=== PATIENT | female | born 1995 | race Caucasian/White ===

== ENCOUNTER 2019-12-16 09:11 | Inpatient (IN) ==
[2019-12-16] MEDS ORDERED: OXYTOCIN 30 UNITS/500 ML BAG IV PRN ×2 (09:40→10:09)
[2019-12-16] MEDS ORDERED: PENICILLIN G POTASSIUM 6 MU in DEXTROSE 5% 250 ML IV STA (09:40)
[2019-12-16] MEDS ORDERED: PENICILLIN G POTASSIUM 3 MU in DEXTROSE 5% 100 ML IV SCH (09:45)
[2019-12-16 10:03] LABS: Hematocrit (blood only) 37.2 % (37-47); Mean Corpuscular Hemoglobin 30.5 pg (25-34); Mean Corpuscular Volume 94.7 fL (80-100); Mean Platelet Volume 11.1 fL (7.4-10.4); Platelet Count 147 K/uL (130-400); RDW Coefficient of Variation 13.8 % (11.5-14.5); RDW Standard Deviation 47.9 fL (36.4-46.3); Red Blood Count 3.93 M/uL (4.2-5.4); White Blood Count 10.99 K/uL (4.8-10.8)
[2019-12-16 10:05] LABS: Mean Corpuscular Hgb Conc 32.3 g/dL (32-36)
[2019-12-16 10:20] LABS: Alanine Aminotransferase 39 U/L (12-78); Albumin Level 2.5 gm/dl (3.4-5.0); Aspartate Aminotransferase 65 U/L (15-37); BUN Creatinine Ratio 9.2 (10-20); Bilirubin Direct < 0.1 mg/dl (0-0.2); Blood Urea Nitrogen 6 mg/dl (7-18); Calcium 8.5 mg/dl (8.5-10.1); Carbon Dioxide 22 mmol/L (21-32); Chloride 108 mmol/L (98-107); Creatinine Clr Calc Pharmacy 153.8 ml/min; Est GFR (African American) 141.6; Est GFR (Non-African American) 122.2; Glucose 82 mg/dl (70-99); Potassium 3.6 mmol/L (3.5-5.1); Sodium 139 mmol/L (136-145)
--- NOTE | 2019-12-16 10:21 | History & Physical Report ---
Date of Service December 16, 2019 Assessment & Plan (1) Group B streptococcal bacteriuria: Will treat with pcn (2) Gestational [-induced] hypertension without significant proteinuria, third trimester: Given demonstration of elevated blood pressure over greater than 4 hours, she fulfils criteria of ghtn. Plan to admit to induce, favorable cervix. Plan pitocin, arom when indicated. Epidural upon demand. fetus category one and anticipate . Repeat labs. No s/s of severe disease at this point, but will monitor carefully. History of Present Illness Chief Complaint: blood pressure check Primary Care Provider: NO PCP Patient is a 24yowf with iup at 39 5/7 weeks who presents to labor and delivery for a blood pressure check. She was evaluated in the Ed yesterday for concern for DVt. She ruled out for this but had very elevated blood pressures in the Ed as high as 160s/110s. She was completely asymptomatic. She was monitored in labor and delivery and her pressures improved to more normal ranges. She had only an elevated AST in 60s. Given all of this, there was no diagnosis at the time and she was sent home for evaluation this am. She continues to be asymptomatic at this time. +fm. no ctx/lof/vb. Her pressures are still slightly elevated although not as bad as yesterday. Given elevated blood pressures over more than 4 hours, this makes her at best ghtn perhaps atypical pet and has an indication for delivery. She is agreeable. The has been otherwise uncomplicated. labs--O+/ab-/ri/rprnr/hepb-/hiv-/gc/ct-/ declined genetic testing/gtt x 2 neg/GBS positive. Last covid exactly 14 days ago and negative. Allergies Allergy/AdvReac Type Severity Reaction Status Date / Time levocetirizine [From Xyzal] Allergy Intermediate Hives Verified 12/16/19 10:17 Home Medications Home Medications Medication Instructions Recorded Confirmed Type prenat.vits,laly,psp-julg-pagjg 1 tab PO DAILY 05/07/19 12/15/19 History docusate sodium 100 mg PO BID PRN 12/15/19 12/15/19 History Patient History Medical History (Updated 12/16/19 @ 10:18 by Guerda Acevedo MD, FACOG) Encounter for anatomic survey Hx of ovarian cyst Surgical History (Updated 12/16/19 @ 10:16 by Vero Arellano RN) H/O breast surgery Hx of LASIK S/P wisdom tooth extraction Family History Mother Diabetes Dyslipidemia Hypertension Grandmother (Maternal) Breast cancer Hypertension Dyslipidemia Grandfather (Maternal) Heart disease Hypertension Dyslipidemia Aunt Twin Social History Smoking Status: Never smoker Hx Alcohol Use: No Hx Substance Use: No Preferred Language: Micronesian Communication Ability: Effective Roll Capper Required: No Beliefs That Will Affect Care: None marital status: marital status details: Stephon Lerma (25) [phone] Current Living Situation: Spouse Current Living Situation Comment: lives with spouse, 1 dog, 1 cat. 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 Review of Systems All systems reviewed & are unremarkable except as noted in HPI & below Physical Exam Constitutional: WD/WN, vitals as above Cardiovascular: Extremities: + edema (trace) Gastrointestinal (Abdomen): soft, nt, gravid Neurologic: nl dtrs, no clonus Psychiatric: A+Ox3, euthymic affect Genitourinary: cx--3/50/-2/soft/mid toco--none efm--140s with mod variability, accels to 160s, no decels Results & Data ([facility]) Vital Signs (Past 12 Hours) Vital Signs Pulse BP 12/16/19 09:46 122 H 137/92 12/16/19 09:31 111 H 139/94 12/16/19 09:19 104 H 145/89 H Coding Level of Care Code None Diagnoses Group B streptococcal bacteriuria R82.71 Gestational [-induced] hypertension without significant proteinuria, third trimester O13.3
[2019-12-16 10:23] LABS: Albumin Globulin Ratio 0.7 (0.9-2); Alkaline Phosphatase 157 U/L (45-117); Bilirubin,Total 0.3 mg/dl (0.2-1); Globulin 3.8 gm/dl (2.5-4.0); Total Protein 6.3 gm/dl (6.4-8.2)
[2019-12-16] MEDS: LACTATED RINGER'S 1,000 ML IV PRN ×3 (10:42→22:25)
[2019-12-16] MEDS: PENICILLIN G POTASSIUM 3 MU in DEXTROSE 5% 100 ML IV PRN ×3 (14:41→22:47)
[2019-12-16] MEDS ORDERED: ePHEDrine sulfate 50 MG/ML AMP ONE (15:41)
[2019-12-16] MEDS ORDERED: BUPIVACAINE 0.25% 30 ML VIAL ONE (15:41)
[2019-12-16] MEDS ORDERED: fentaNYL citrate 100 MCG/2 ML VIAL ONE (15:42)
[2019-12-16] MEDS ORDERED: fentaNYL 2MCG/ML ROPIV 1.25MG/ML 100 ML BAG EPI ONE (15:42)
[2019-12-16] MEDS ORDERED: fentaNYL 2MCG/ML ROPIV 1.25MG/ML 100 ML BAG EPI PRN ×3 (15:43→18:25)
[2019-12-16] MEDS ORDERED: NALOXONE HCL 1 MG in SODIUM CHLORIDE 0.9% 1000ML 1,000 ML IV PRN (15:43)
[2019-12-16] MEDS ORDERED: ONDANSETRON INJ 2 MG/ML 2 ML VIAL IV PRN (15:43)
[2019-12-16] MEDS ORDERED: ePHEDrine sulfate 50 MG/ML AMP IV PRN (15:43)
[2019-12-16] MEDS ORDERED: NALOXONE HCL 0.4 MG/1 ML VIAL/CARP IV PRN (15:43)
--- NOTE | 2019-12-16 15:46 | Anesthesiology Consultation ---
Date of Service December 16, 2019 Covid 19 negative today. Assessment & Plan Chart Review Chart Review: Patient NOT seen in Pre Admission Testing and Acceptable Risk for Labor Epidural Consults Requested none ASA ASA2 Proposed Anesthesia Anesthesia Type: Labor Epidural and CSE Risk / Benefits Reviewed With: PT / POA / Parent / Guardian, Accepts Plan and Informed Consent Obtained History Height/Weight Height: 5 ft 8 in Weight: 93.894 kg Allergies Allergy/AdvReac Type Severity Reaction Status Date / Time levocetirizine [From Xyzal] Allergy Intermediate Hives Verified 12/16/19 10:17 Medications Home Medications Medication Instructions Recorded Confirmed Last Taken prenat.vits,laly,ncn-idba-nbjzr 1 tab PO DAILY 05/07/19 12/16/19 12/15/19 20:00 docusate sodium 100 mg PO BID PRN 12/15/19 12/16/19 12/15/19 08:00 Active Medications Generic Name Dose Route Start Last Admin Trade Name Freq PRN Reason Stop Dose Admin Lactated Ringer's 1,000 mls @ 125 mls/hr 12/16/19 09:40 12/16/19 15:46 Lr IV 12/18/19 09:39 999 mls/hr .Q8H PRN Titration L&D Protocol Protocol Oxytocin 30 units in 500 mls @ 14 mls/hr 12/16/19 10:09 12/16/19 13:55 Pitocin IV 12/18/19 10:08 0.84 units/hr .Q24H PRN 14 mls/hr Labor Induction/Augmentation Titration Protocol 0.84 UNITS/HR Penicillin G Potassium 3 mu/ 106 mls @ 100 mls/hr 12/16/19 11:30 12/16/19 15: 46 Dextrose IV 12/26/19 09:44 Infused Q4H PRN Titration LABOR Protocol NPO Date Last Intake of Fluids: 12/16/19 Time Last Intake of Fluids: 14:30 Date Last Intake of Solids: 12/16/19 Time Last Intake of Solids: 08:30 Past Medical History Medical History Encounter for anatomic survey Hx of ovarian cyst Exercise / Class Metabolic Activity II 4-5 Yardwork/Stairs/Walk up hill Past Family History Family History Mother Diabetes Dyslipidemia Hypertension Grandmother (Maternal) Breast cancer Hypertension Dyslipidemia Grandfather (Maternal) Heart disease Hypertension Dyslipidemia Aunt Twin Past Surgical History Surgical History H/O breast surgery Hx of LASIK S/P wisdom tooth extraction Past Anesthesia History No Hx of Anesthesia Complications and No Family Hx of Anesthesia Complications History of PONV No Hx of PONV and No Hx of Motion Sickness Social History Smoking Status: Never smoker Hx Alcohol Use: No Hx Substance Use: No substance use type: does not use Review of Systems no chest pain or sob Physical Exam Vital Signs Last Vital Signs Temp 36.5 C 12/16/19 15:08 Pulse 84 12/16/19 15:40 Resp 20 12/16/19 15:30 BP 135/71 12/16/19 15:10 Pulse Ox 100 12/16/19 15:40 ENMT Mouth: no TMJ abnormality Thyromental Distance: > or= 3.5 Finger Breadths Mallampati Class: II Neck normal visual inspection Respiratory normal respiratory effort Auscultation: lungs clear to auscultation bilaterally Cardiovascular Rate/Rhythm: regular rate and regular rhythm Musculoskeletal Spine: normal cervical ROM Neurologic moves all extremities Psychiatric Orientation: alert and oriented x 3 Testing Laboratory Results 12/16/19 09:54 12/16/19 09:54
--- NOTE | 2019-12-16 16:51 | Labor Progress Brief Note ---
Date of Service December 16, 2019 Subjective s/p epiural Assessment & Plan (1) Gestational [-induced] hypertension without significant proteinuria, third trimester: Admission and Anticipated Discharge Date Admission Date: December 16, 2019 s/p arom. continue pitocin. fetus category one. anticipate . Physical Exam Constitutional: WD/WN, vitals as above Psychiatric: A+Ox3, euthymic affect Genitourinary: cx--4-5/80/-2 arom--small, clear toco--q2-3min, pit at 14 efm--130s wtih mod variability, accels to 160s, no decels Results & Data ([facility]) Vital Signs (Past 12 Hours) Vital Signs Temp Pulse Resp BP Pulse Ox 12/16/19 16:45 77 100 12/16/19 16:41 79 139/80 12/16/19 16:40 76 100 12/16/19 16:35 77 98 12/16/19 16:31 74 93 12/16/19 16:30 81 18 100 12/16/19 16:26 73 133/80 12/16/19 16:25 73 100 12/16/19 16:20 70 128/78 99 12/16/19 16:17 78 136/89 12/16/19 16:15 79 99 12/16/19 16:10 82 135/81 100 12/16/19 16:09 78 144/86 H 12/16/19 16:07 84 138/79 12/16/19 16:05 86 152/83 H 99 12/16/19 16:03 82 124/65 12/16/19 16:01 82 128/70 12/16/19 16:00 89 20 100 12/16/19 15:59 80 138/86 12/16/19 15:57 78 131/86 12/16/19 15:56 76 137/90 12/16/19 15:55 77 100 12/16/19 15:50 101 H 100 12/16/19 15:45 86 100 12/16/19 15:40 84 100 12/16/19 15:30 20 12/16/19 15:10 68 135/71 12/16/19 15:08 36.5 C 18 12/16/19 14:46 83 126/76 12/16/19 13:49 37.0 C 73 20 135/72 09/07/20 12:42 76 110/73 12/16/19 11:45 86 123/81 12/16/19 10:44 95 H 129/87 12/16/19 09:50 37.0 C 20 12/16/19 09:46 122 H 137/92 12/16/19 09:31 111 H 139/94 12/16/19 09:19 104 H 145/89 H Coding Level of Care Code None Diagnoses Gestational [-induced] hypertension without significant proteinuria, third trimester O13.3
[2019-12-16] MEDS ORDERED: Nursing to Pharmacy Communication SCH (17:15)
--- NOTE | 2019-12-16 19:28 | Labor Progress Brief Note ---
Date of Service December 16, 2019 Subjective comfortable Assessment & Plan (1) Gestational [-induced] hypertension without significant proteinuria, third trimester: Admission and Anticipated Discharge Date Admission Date: December 16, 2019 Making change. Continue pitocin. Fetus category one. Anticipate . Physical Exam Constitutional: WD/WN, vitals as above Psychiatric: A+Ox3, euthymic affect Genitourinary: cx--6-7/80/-2 toco--q 2-4min, pit at 16 efm--115 with mod variability, accels to 150s, no decels Results & Data ([facility]) Vital Signs (Past 12 Hours) Vital Signs Temp Pulse Resp BP Pulse Ox 12/16/19 19:20 84 100 12/16/19 19:15 74 100 12/16/19 19:10 87 100 12/16/19 19:06 75 135/79 12/16/19 19:05 80 99 12/16/19 19:00 74 20 100 12/16/19 18:55 69 100 12/16/19 18:51 88 140/88 12/16/19 18:50 81 100 12/16/19 18:45 36.8 C 81 99 12/16/19 18:40 75 99 12/16/19 18:36 76 130/84 12/16/19 18:35 76 97 12/16/19 18:30 77 20 98 12/16/19 18:25 74 99 12/16/19 18:21 77 128/81 12/16/19 18:20 75 99 12/16/19 18:15 75 98 12/16/19 18:10 74 99 12/16/19 18:06 68 126/77 12/16/19 18:05 74 99 12/16/19 18:00 71 20 100 12/16/19 17:55 75 99 12/16/19 17:51 96 H 129/81 12/16/19 17:50 86 99 12/16/19 17:45 72 100 12/16/19 17:40 84 98 12/16/19 17:37 76 126/79 12/16/19 17:35 75 100 12/16/19 17:30 83 20 99 12/16/19 17:25 71 100 12/16/19 17:23 82 131/86 12/16/19 17:21 90 130/85 12/16/19 17:20 91 H 100 12/16/19 17:15 83 100 12/16/19 17:10 69 98 12/16/19 17:07 98 H 133/103 H 12/16/19 17:05 80 100 12/16/19 17:00 73 20 100 12/16/19 16:55 74 100 12/16/19 16:50 75 100 12/16/19 16:45 77 100 12/16/19 16:41 79 139/80 12/16/19 16:40 76 100 12/16/19 16:35 77 98 12/16/19 16:31 74 93 12/16/19 16:30 81 18 100 12/16/19 16:26 73 133/80 12/16/19 16:25 73 100 12/16/19 16:20 70 128/78 99 12/16/19 16:17 78 136/89 12/16/19 16:15 79 99 12/16/19 16:10 82 135/81 100 12/16/19 16:09 78 144/86 H 12/16/19 16:07 84 138/79 12/16/19 16:05 86 152/83 H 99 12/16/19 16:03 82 124/65 12/16/19 16:01 82 128/70 12/16/19 16:00 89 20 100 12/16/19 15:59 80 138/86 12/16/19 15:57 78 131/86 12/16/19 15:56 76 137/90 12/16/19 15:55 77 100 12/16/19 15:50 101 H 100 12/16/19 15:45 86 100 12/16/19 15:40 84 100 12/16/19 15:30 20 12/16/19 15:10 68 135/71 12/16/19 15:08 36.5 C 18 12/16/19 14:46 83 126/76 12/16/19 13:49 37.0 C 73 20 135/72 12/16/19 12:42 76 110/73 12/16/19 11:45 86 123/81 12/16/19 10:44 95 H 129/87 12/16/19 09:50 37.0 C 20 12/16/19 09:46 122 H 137/92 12/16/19 09:31 111 H 139/94 12/16/19 09:19 104 H 145/89 H Coding Level of Care Code None Diagnoses Gestational [-induced] hypertension without significant proteinuria, third trimester O13.3
--- NOTE | 2019-12-16 21:29 | Obstetrical Progress Note ---
Date of Service December 16, 2019 Assessment & Plan (1) Gestational [-induced] hypertension without significant pr oteinuria, third trimester: Admission and Anticipated Discharge Date Admission Date: December 16, 2019 Will run pitocin to get mvus to >200. Fetus category one. Suspect ctx not strong enough. Subjective Getting a little more uncomfortable. Review of Systems Constitutional: as per Subjective / HPI Physical Exam Constitutional: WD/WN, vitals as above Psychiatric: A+Ox3, euthymic affect Genitourinary: cx--unchanged iupc placed tcocqq2-4min, pit at 18 efm--120s wtih mod variability, accels present, no decels Results & Data ([facility]) Vital Signs (Past 12 Hours) Vital Signs Temp Pulse Resp BP Pulse Ox 12/16/19 21:25 82 100 12/16/19 21:21 75 105/64 12/16/19 21:20 77 98 12/16/19 21:15 72 97 12/16/19 21:10 75 98 12/16/19 21:06 75 116/71 12/16/19 21:05 74 100 12/16/19 21:00 37.0 C 81 20 98 12/16/19 20:55 91 H 100 12/16/19 20:51 89 126/77 12/16/19 20:50 86 100 12/16/19 20:45 76 99 12/16/19 20:40 79 97 12/16/19 20:36 86 120/79 12/16/19 20:35 85 96 12/16/19 20:30 74 20 96 12/16/19 20:25 70 96 12/16/19 20:21 68 121/81 12/16/19 20:20 72 96 12/16/19 20:15 69 96 12/16/19 20:10 64 96 12/16/19 20:06 101 H 131/88 12/16/19 20:05 95 H 97 12/16/19 20:00 97 H 20 98 12/16/19 19:55 68 98 12/16/19 19:51 76 128/83 12/16/19 19:50 72 97 12/16/19 19:45 68 97 12/16/19 19:40 72 100 12/16/19 19:36 63 127/82 12/16/19 19:35 70 100 12/16/19 19:30 88 20 98 12/16/19 19:25 73 100 12/16/19 19:20 84 100 12/16/19 19:15 74 100 12/16/19 19:10 87 100 12/16/19 19:06 75 135/79 12/16/19 19:05 80 99 12/16/19 19:00 74 20 100 12/16/19 18:55 69 100 12/16/19 18:51 88 140/88 12/16/19 18:50 81 100 12/16/19 18:45 36.8 C 81 99 12/16/19 18:40 75 99 12/16/19 18:36 76 130/84 12/16/19 18:35 76 97 12/16/19 18:30 77 20 98 12/16/19 18:25 74 99 12/16/19 18:21 77 128/81 12/16/19 18:20 75 99 12/16/19 18:15 75 98 12/16/19 18:10 74 99 12/16/19 18:06 68 126/77 12/16/19 18:05 74 99 12/16/19 18:00 71 20 100 12/16/19 17:55 75 99 12/16/19 17:51 96 H 129/81 12/16/19 17:50 86 99 12/16/19 17:45 72 100 12/16/19 17:40 84 98 12/16/19 17:37 76 126/79 12/16/19 17:35 75 100 12/16/19 17:30 83 20 99 12/16/19 17:25 71 100 12/16/19 17:23 82 131/86 12/16/19 17:21 90 130/85 12/16/19 17:20 91 H 100 12/16/19 17:15 83 100 12/16/19 17:10 69 98 12/16/19 17:07 98 H 133/103 H 12/16/19 17:05 80 100 12/16/19 17:00 73 20 100 12/16/19 16:55 74 100 12/16/19 16:50 75 100 12/16/19 16:45 77 100 12/16/19 16:41 79 139/80 12/16/19 16:40 76 100 12/16/19 16:35 77 98 12/16/19 16:31 74 93 12/16/19 16:30 81 18 100 12/16/19 16:26 73 133/80 12/16/19 16:25 73 100 12/16/19 16:20 70 128/78 99 12/16/19 16:17 78 136/89 12/16/19 16:15 79 99 12/16/19 16:10 82 135/81 100 12/16/19 16:09 78 144/86 H 12/16/19 16:07 84 138/79 12/16/19 16:05 86 152/83 H 99 12/16/19 16:03 82 124/65 12/16/19 16:01 82 128/70 12/16/19 16:00 89 20 100 12/16/19 15:59 80 138/86 12/16/19 15:57 78 131/86 12/16/19 15:56 76 137/90 12/16/19 15:55 77 100 12/16/19 15:50 101 H 100 12/16/19 15:45 86 100 12/16/19 15:40 84 100 12/16/19 15:30 20 12/16/19 15:10 68 135/71 12/16/19 15:08 36.5 C 18 12/16/19 14:46 83 126/76 12/16/19 13:49 37.0 C 73 20 135/72 12/16/19 12:42 76 110/73 12/16/19 11:45 86 123/81 12/16/19 10:44 95 H 129/87 12/16/19 09:50 37.0 C 20 12/16/19 09:46 122 H 137/92 12/16/19 09:31 111 H 139/94 PG Care Time/CCT Total # of Minutes Spent Total Time Spent with Patient: Total time spent is greater than 50% in coordination of care (as documented) at patient's floor/unit and/or counseling patient: Coding Level of Care Code None Diagnoses Gestational [-induced] hypertension without significant proteinuria, third trimester O13.3
--- NOTE | 2019-12-17 00:13 | Obstetrical Progress Note ---
Date of Service December 17, 2019 Assessment & Plan (1) Gestational [-induced] hypertension without significant pr oteinuria, third trimester: Admission and Anticipated Discharge Date Admission Date: December 16, 2019 continue current management. Fetus overall reassuring category 2. anticipate . Subjective resting Review of Systems Review of Systems: All systems reviewed & are unremarkable except as noted in HPI & below Physical Exam Constitutional: WD/WN, vitals as above Psychiatric: A+Ox3, euthymic affect Genitourinary: cx--9/100/-2 per recent nursing check toco--q 2-3min, pit at 26 efm--120s with mod variability, rare variable with contractions, small accel [facility] & Data ([facility]) Vital Signs (Past 12 Hours) Vital Signs Temp Pulse Resp BP Pulse Ox 12/17/19 00:07 78 115/64 12/17/19 00:05 85 100 12/17/19 00:00 88 100 12/16/19 23:55 84 100 12/16/19 23:51 93 H 150/90 H 12/16/19 23:50 92 H 100 12/16/19 23:45 91 H 100 12/16/19 23:40 85 97 12/16/19 23:36 74 141/91 H 12/16/19 23:35 89 100 12/16/19 23:30 68 99 12/16/19 23:25 86 98 12/16/19 23:21 73 127/78 12/16/19 23:20 73 98 12/16/19 23:15 69 99 12/16/19 23:10 67 98 12/16/19 23:06 72 129/79 12/16/19 23:05 73 98 12/16/19 23:00 71 99 12/16/19 22:55 84 98 12/16/19 22:51 36.4 C L 82 18 129/80 12/16/19 22:50 80 99 12/16/19 22:45 84 99 12/16/19 22:40 73 99 12/16/19 22:36 78 121/76 12/16/19 22:35 77 98 12/16/19 22:30 36.8 C 71 20 98 12/16/19 22:25 70 96 12/16/19 22:22 71 125/73 12/16/19 22:20 68 97 12/16/19 22:15 69 96 12/16/19 22:14 70 94 12/16/19 22:10 69 96 12/16/19 22:06 72 114/72 12/16/19 22:05 67 96 12/16/19 22:00 71 20 96 12/16/19 21:55 91 H 97 12/16/19 21:51 100 H 113/78 12/16/19 21:50 100 H 98 12/16/19 21:45 77 98 12/16/19 21:40 77 99 12/16/19 21:36 80 118/78 12/16/19 21:35 68 98 12/16/19 21:30 81 20 99 12/16/19 21:25 82 100 12/16/19 21:21 75 105/64 12/16/19 21:20 77 98 12/16/19 21:15 72 97 12/16/19 21:10 75 98 12/16/19 21:06 75 116/71 12/16/19 21:05 74 100 12/16/19 21:00 37.0 C 81 20 98 12/16/19 20:55 91 H 100 12/16/19 20:51 89 126/77 12/16/19 20:50 86 100 12/16/19 20:45 76 99 12/16/19 20:40 79 97 12/16/19 20:36 86 120/79 12/16/19 20:35 85 96 12/16/19 20:30 74 20 96 12/16/19 20:25 70 96 12/16/19 20:21 68 121/81 12/16/19 20:20 72 96 12/16/19 20:15 69 96 12/16/19 20:10 64 96 12/16/19 20:06 101 H 131/88 12/16/19 20:05 95 H 97 12/16/19 20:00 97 H 20 98 12/16/19 19:55 68 98 12/16/19 19:51 76 128/83 12/16/19 19:50 72 97 12/16/19 19:45 68 97 12/16/19 19:40 72 100 12/16/19 19:36 63 127/82 12/16/19 19:35 70 100 12/16/19 19:30 88 20 98 12/16/19 19:25 73 100 12/16/19 19:20 84 100 12/16/19 19:15 74 100 12/16/19 19:10 87 100 12/16/19 19:06 75 135/79 12/16/19 19:05 80 99 12/16/19 19:00 74 20 100 12/16/19 18:55 69 100 12/16/19 18:51 88 140/88 12/16/19 18:50 81 100 12/16/19 18:45 36.8 C 81 99 12/16/19 18:40 75 99 12/16/19 18:36 76 130/84 12/16/19 18:35 76 97 12/16/19 18:30 77 20 98 12/16/19 18:25 74 99 12/16/19 18:21 77 128/81 12/16/19 18:20 75 99 12/16/19 18:15 75 98 12/16/19 18:10 74 99 12/16/19 18:06 68 126/77 12/16/19 18:05 74 99 12/16/19 18:00 71 20 100 12/16/19 17:55 75 99 12/16/19 17:51 96 H 129/81 12/16/19 17:50 86 99 12/16/19 17:45 72 100 12/16/19 17:40 84 98 12/16/19 17:37 76 126/79 12/16/19 17:35 75 100 12/16/19 17:30 83 20 99 12/16/19 17:25 71 100 12/16/19 17:23 82 131/86 12/16/19 17:21 90 130/85 12/16/19 17:20 91 H 100 12/16/19 17:15 83 100 12/16/19 17:10 69 98 12/16/19 17:07 98 H 133/103 H 12/16/19 17:05 80 100 12/16/19 17:00 73 20 100 12/16/19 16:55 74 100 12/16/19 16:50 75 100 12/16/19 16:45 77 100 12/16/19 16:41 79 139/80 12/16/19 16:40 76 100 12/16/19 16:35 77 98 12/16/19 16:31 74 93 09/07/20 16:30 81 18 100 12/16/19 16:26 73 133/80 12/16/19 16:25 73 100 12/16/19 16:20 70 128/78 99 12/16/19 16:17 78 136/89 12/16/19 16:15 79 99 12/16/19 16:10 82 135/81 100 12/16/19 16:09 78 144/86 H 12/16/19 16:07 84 138/79 12/16/19 16:05 86 152/83 H 99 12/16/19 16:03 82 124/65 12/16/19 16:01 82 128/70 12/16/19 16:00 89 20 100 12/16/19 15:59 80 138/86 12/16/19 15:57 78 131/86 12/16/19 15:56 76 137/90 12/16/19 15:55 77 100 12/16/19 15:50 101 H 100 12/16/19 15:45 86 100 12/16/19 15:40 84 100 12/16/19 15:30 20 12/16/19 15:10 68 135/71 12/16/19 15:08 36.5 C 18 12/16/19 14:46 83 126/76 12/16/19 13:49 37.0 C 73 20 135/72 12/16/19 12:42 76 110/73 PG Care Time/CCT Total # of Minutes Spent Total Time Spent with Patient: Total time spent is greater than 50% in coordination of care (as documented) at patient's floor/unit and/or counseling patient: Coding Level of Care Code None Diagnoses Gestational [-induced] hypertension without significant proteinuria, third trimester O13.3
[2019-12-17] MEDS ORDERED: miSOPROStoL 200 MCG TAB ONE (02:32)
[2019-12-17] MEDS ORDERED: CARBOPROST TROMETHAMINE 250 MCG/ML AMPUL ONE (02:33)
[2019-12-17] MEDS ORDERED: METHYLERGONOVINE MALEATE 0.2 MG/ML AMP ONE (02:45)
[2019-12-17] MEDS ORDERED: OXYCODONE/ACETAMINOPHEN 5mg/325mg TAB PO PRN (02:56)
[2019-12-17] MEDS ORDERED: METHYLERGONOVINE MALEATE 0.2 MG/ML AMP IM ONE (02:56)
[2019-12-17] MEDS ORDERED: BENZOCAINE 20% AER SPR 82.5 GM CAN EXT PRN (02:56)
[2019-12-17] MEDS ORDERED: SUPERCREAM 0.870% 15 GM JAR EXT PRN (02:56)
[2019-12-17] MEDS ORDERED: OXYTOCIN 30 UNITS/500 ML BAG IV PRN (02:56)
[2019-12-17] MEDS ORDERED: CARBOPROST TROMETHAMINE 250 MCG/ML AMPUL IM ONE (02:56)
[2019-12-17] MEDS ORDERED: HYDROCORTISONE ACETATE 25 MG SUPP PR PRN (02:56)
[2019-12-17] MEDS ORDERED: bisacodyL 10 MG SUPP PR PRN (02:56)
[2019-12-17] MEDS ORDERED: ACETAMINOPHEN 325 MG TAB PO PRN (02:56)
[2019-12-17] MEDS ORDERED: DIPHTHERIA/TETANUS/PERTUSSIS 0.5 ML SYR/VIAL IM ONE (02:56)
[2019-12-17] MEDS ORDERED: miSOPROStoL 200 MCG TAB PR ONE (02:56)
--- NOTE | 2019-12-17 02:57 | Delivery Summary ---
Vaginal Delivery Summary Date of Service December 17, 2019 Vaginal Delivery Summary Pre-operative Diagnosis: at 39 weeks [facility] Post-operative Diagnosis: same PPH secondary to uterine atony Procedure: pitocin induction epidural iupc first degree laceration with repair multiple medications administered to aid in treatment of uterine atony EBL: 900cc Anesthesia: epidural Procedure: The patient pushed for about 90 minutes to deliver a viable female in bong position. A loose nuchal cord x 1 was easily reduced and then the rest of the was then delivered without difficulty. The baby was vigorous. The nose and mouth were bulb suctioned and the was placed in the maternal abdomen for drying and attention. Cord was clamped and cut at one minute of life. Cord blood and segment obtained. Placenta delivered spontaneous, intact with a three vessel cord. I needed to reach into the vagina to grasp the placenta to aid in delivery. After the placenta delivered, a large amount of blood was expelled from the uterus--about 700cc. A PPH was encountered secondary to uterine atony which was treated with dilute pitocin, rectal cytotec, im hemabate, im methergine. The uterus was explored after delivery of the placenta and no retained pocs noted. Aggressive uterine massage was performed. Cervix/sulci/rectum were intact. A first degree perineal laceration was repaired in the normal standard fashion. The zenia was explored after the repair and a small amount of clot was removed. the uterus was firming down nicely. A second iv site was obtained and fluid bolus given. Pulse dropped to the 60s and blood pressure dropped to 60/30 immediately after delivery of the placenta and loss of blood. Pulse now in 90s with pressure recovered to 118/70. Apgars were 8/8. Will continue to monitor bleeding while in PP recovery.
[2019-12-17] MEDS ORDERED: OXYTOCIN 20 UNITS in LACTATED RINGER'S 1,000 ML IV SCH (03:00)
[2019-12-17] MEDS ORDERED: ONDANSETRON INJ 2 MG/ML 2 ML VIAL ONE (03:13)
[2019-12-17] MEDS ORDERED: ONDANSETRON INJ 2 MG/ML 2 ML VIAL IV ONE (03:13)
--- NOTE | 2019-12-17 07:12 | Anesthesia Procedure Note ---
Date of Service December 17, 2019 Anesthesia Post Epidural Note Vital Signs Vital Signs: Temp Pulse Resp BP Pulse Ox 36.8 C 82 18 116/63 94 12/17/19 02:50 12/17/19 06:57 12/17/19 06:26 12/17/19 06:57 12/17/19 03:20 Pain Intensity Bilateral Lower Abdomen: Pain Intensity: 1 Notes Mental Status: alert / awake / arousable and participated in evaluation Nausea / Vomiting: adequately controlled Pain: adequately controlled Airway Patency, RR, SpO2: stable & adequate BP & HR: stable & adequate Hydration State: stable & adequate Neuraxial Anesthesia: was administered and sensory block is resolving Anesthetic Complications: no major complications apparent and Pt Satisfied with anesthetic care Epidural: Removed without complications and With tip intact Notes: Epidural site clean, dry and intact. No signs of edema, erythema or bruising at insertion site. Pt instructed to request anesthesia if she has residual lower extremity numbness or if she develops lower extremity pain or weakness, back pain or headache.
[2019-12-17 08:05] LABS: Hematocrit (blood only) 30.2 % (37-47)
[2019-12-17] MEDS: PRENATAL VITAMIN 1 TAB PO SCH (09:50)
[2019-12-17] MEDS: IBUPROFEN 600 MG TAB PO PRN ×2 (09:50→21:12)
[2019-12-17] MEDS: DOCUSATE SODIUM 100 MG CAP PO SCH ×2 (09:50→21:09)
[2019-12-18 05:54] LABS: Hematocrit (blood only) 26.3 % (37-47); Hemoglobin 8.8 g/dL (12.0-16.0)
--- NOTE | 2019-12-18 07:07 | Obstetrical Progress Note ---
Date of Service <Edd Castro MD - Last Filed: 12/18/19 08:08> December 18, 2019 Assessment & Plan <Edd Castro MD - Last Filed: 12/18/19 08:08> (1) Vaginal delivery: - PNL: Rh pos, RI, GBS pos, COVID neg - Feels well today. Eating well, voiding well, ambulating well. - Pain well controlled with ibuprofen 600mg Q4H PRN - Routine care - OOB, ambulation, diet progression as tolerated - After discharge will have 6 week follow-up with Dr. Francis Subjective <Edd Castro MD - Last Filed: 12/18/19 08:08> Ambulation: ambulating normally Voiding: no voiding problems Passing Gas:: Yes Diet Tolerance:: regular diet Lochia:: Small Constitutional: no fever and no chills Respiratory: no cough and no dyspnea Cardiovascular: no chest pain, no palpitations and no edema Gastrointestinal: no nausea and no vomiting Genitourinary (female): no dysuria Physical Exam <Edd Castro MD - Last Filed: 12/18/19 08:08> Constitutional no acute distress Respiratory normal respiratory effort, lungs clear to auscultation Cardiovascular RRR, no murmur, no edema Gastrointestinal (Abdomen) Inspection/Auscultation: normal bowel sounds Percussion/Palpation: abdomen soft Musculoskeletal no calf tenderness Genitourinary uterine fundus firm, palpable 3cm below the umbilicus Results & Data ([facility]) <Edd Castro MD - Last Filed: 12/18/19 08:08> Vital Signs (Past 12 Hours) Vital Signs Temp Pulse Resp BP Pulse Ox 12/18/19 00:25 36.7 C 105 H 18 118/81 98 12/17/19 21:15 36.7 C 111 H 16 141/90 H 99 <April Francis MD, FACOG - Last Filed: 12/18/19 08:51> Co-Signing Physician Notes Resident Physician Supervision Note: I was present with [Gloria] during the history and exam. I discussed the case with the resident and agree with the findings and plan as documented in the note. Any exceptions or clarifications are listed here: [None] Documented By: April Francis MD, FACOG Resident Activity Tracking <Edd Castro MD - Last Filed: 12/18/19 08:08> Resident Involvement: Resident Care Provided Care Provided: OB Delivery
[2019-12-18] MEDS: PRENATAL VITAMIN 1 TAB PO SCH (08:40)
[2019-12-18] MEDS: DOCUSATE SODIUM 100 MG CAP PO SCH (08:40)
[2019-12-18] MEDS: IBUPROFEN 600 MG TAB PO PRN (08:40)
[2019-12-18] MEDS ORDERED: bisacodyL 5 MG TABEC PO SCH (20:00)
== END 2019-12-18 14:43 | disposition home or self-care (01) | DRG 768 ==
LOC: OPB 09:11 → 4S1 09:16 → 4S2 12-17 09:26

== ENCOUNTER 2021-11-17 07:58 | Inpatient (IN) ==
[2021-11-17] MEDS ORDERED: OXYTOCIN 30 UNITS/500 ML BAG IV PRN ×2 (08:11→21:41)
[2021-11-17] MEDS ORDERED: Patient's HEIGHT &/or WEIGHT Needed SCH (08:30)
[2021-11-17] MEDS: LACTATED RINGER'S 1,000 ML IV PRN ×3 (09:19→17:49)
[2021-11-17] MEDS: OXYTOCIN 30 UNITS/500 ML BAG IV PRN ×2 (09:28→21:45)
[2021-11-17 09:48] LABS: Hematocrit (blood only) 35.5 % (34.1-44.9); Hemoglobin 11.3 g/dl (12.0-16.0); Mean Corpuscular Hemoglobin 28.3 pg (25.0-34.0); Mean Corpuscular Hgb Conc 31.8 g/dL (32.0-36.0); Mean Platelet Volume 10.9 fL (9.4-12.3); Platelet Count 152 K/uL (130-400); RDW Coefficient of Variation 14.2 % (11.5-14.5); RDW Standard Deviation 45.6 fL (36.4-46.3); Red Blood Count 3.99 M/uL (3.93-5.22); White Blood Count 10.72 K/ul (4.8-10.8)
--- NOTE | 2021-11-17 11:00 | History & Physical Report ---
Date of Service November 17, 2021 Assessment & Plan (1) Two vessel umbilical cord, antepartum: Plan: IUP at 39+ weeks with a two-vessel cord and suspected macrosomia. Pitocin augmentation of labor. Epidural when requested. Anticipate vaginal delivery. Admission and Anticipated Discharge Date Admission Date: November 17, 2021 History of Present Illness Primary Care Provider: NO PCP Patient is a 26-year-old 2 para 1-0-0-1 female EDC of 09/19/2021 who presents for induction of labor because of two-vessel cord and suspected macrosomia. She has had growth scans because of the two-vessel cord and her last estimated weight was 98th percentile with abdominal circumference of 90th percentile. She had history of a hemorrhage as well after her last baby. GBS is negative. Allergies Allergy/AdvReac Type Severity Reaction Status Date / Time levocetirizine [From Xyzal] Allergy Intermediate Hives Verified 11/16/21 08:54 Home Medications Medication Instructions Recorded Confirmed Type prenat.vits,laly,ptz-tcbt-kltcj 1 tab PO DAILY 05/07/19 11/17/21 History Patient History Medical History History of hemorrhage Hx of breast lump Hx of ovarian cyst Mastitis Varicella vaccine Surgical History H/O breast surgery Lump removal Hx of LASIK S/P wisdom tooth extraction Family History Mother Diabetes Dyslipidemia Hypertension Grandmother (Maternal) Breast cancer Hypertension Dyslipidemia Grandfather (Maternal) Heart disease Hypertension Dyslipidemia Aunt Twin aunt delivered twins Denies family history of Ovarian cancer Prostate cancer Lung cancer Social History (Updated 11/17/21 @ 08:11 by Elsy Acevedo) Smoking Status: Never smoker Second Hand Exposure: No; Hx Alcohol Use: No Hx Substance Use: No Preferred Language: Yoruba Communication Ability: Effective In Classroom Tutor Required: No Beliefs That Will Affect Care: None marital status: marital status details: Stephon Lerma (27) [phone] Current Living Situation: Spouse and Family Current Living Situation Comment: and daughter current occupational status: employed current occupation: [employer] Other Information That Helps Us Care for You: No Feels Safe at Home: Yes Safety Concerns: Feels Safe At This Time Childhood Exposure to Second-Hand Smoke: No Dental Care, Regularly: Yes Seatbelt Use: always Sunscreen Use: Yes Do you think of yourself as: straight/heterosexual Gender Identity: Female Assistive Devices: None Review of Systems All systems reviewed & are unremarkable except as noted in HPI & below Physical Exam Constitutional: WD/WN, vitals as above Psychiatric: A+Ox3, euthymic affect Genitourinary: OB Exam Abdomen: + estimated weight (8-9 pounds) Manual OB Exam: + cervical dilation 3 cm (3-4cm), + cervical effacement 80% and + station -2 OB Exam Monitor Tracing: + external FHT monitor used, + external uterine monitor used, + category I and + normal FHT variability Results & Data ([facility]) Vital Signs (Past 12 Hours) Vital Signs Temp Pulse Resp BP 11/17/21 10:01 80 107/63 11/17/21 09:18 91 H 133/73 11/17/21 08:07 98.1 F 107 H 18 121/77 Coding Level of Care Code None Diagnoses Two vessel umbilical cord, antepartum O09.899
[2021-11-17] MEDS ORDERED: NALOXONE HCL 1 MG in SODIUM CHLORIDE 0.9% 1000ML 1,000 ML IV PRN (13:23)
[2021-11-17] MEDS ORDERED: NALBUPHINE HCL INJ 10 MG/ML AMP IV PRN (13:23)
[2021-11-17] MEDS ORDERED: ONDANSETRON INJ 2 MG/ML 2 ML VIAL IV PRN (13:23)
[2021-11-17] MEDS ORDERED: diphenhydrAMINE 50 MG/ML VIAL IV PRN (13:23)
[2021-11-17] MEDS ORDERED: ePHEDrine sulfate 50 MG/ML AMP IV PRN (13:23)
[2021-11-17] MEDS ORDERED: fentaNYL 2MCG/ML ROPIVACAINE 1.25MG/ML 100 ML BAG EPI PRN (13:23)
[2021-11-17] MEDS ORDERED: NALOXONE HCL 0.4 MG/1 ML VIAL/CARP IV PRN (13:23)
--- NOTE | 2021-11-17 13:23 | Anesthesiology Consultation ---
Date of Service November 17, 2021 Assessment & Plan ASA ASA2 Proposed Anesthesia Anesthesia Type: Labor Epidural Risk / Benefits Reviewed With: PT / POA / Parent / Guardian, Accepts Plan and Informed Consent Obtained History Height/Weight Height: 5 ft 8 in Weight: 98.883 kg Allergies Allergy/AdvReac Type Severity Reaction Status Date / Time levocetirizine [From Xyzal] Allergy Intermediate Hives Verified 11/16/21 08:54 Medications Home Medications Medication Instructions Recorded Confirmed Last Taken prenat.vits,laly,jli-zyse-ecucn 1 tab PO DAILY 05/07/19 11/17/21 11/16/21 21:00 Active Medications Generic Name Dose Route Start Last Admin Trade Name Freq PRN Reason Stop Dose Admin Oxytocin 30 units in 500 mls @ 13 mls/hr 11/17/21 08:11 11/17/21 12:30 Pitocin IV 11/19/21 08:10 0.78 units/hr .Q24H PRN 13 mls/hr Labor Induction/Augmentation Titration Protocol 0.78 UNITS/HR Lactated Ringer's 1,000 mls @ 125 mls/hr 11/17/21 08:11 11/17/21 14:07 Lr IV 11/19/21 08:10 125 mls/hr .Q8H PRN Infusion L&D Protocol Protocol Past Medical History Medical History History of hemorrhage Hx of breast lump Hx of ovarian cyst Mastitis Varicella vaccine Exercise / Class Metabolic Activity II 4-5 Yardwork/Stairs/Walk up hill Past Family History Family History Mother Diabetes Dyslipidemia Hypertension Grandmother (Maternal) Breast cancer Hypertension Dyslipidemia Grandfather (Maternal) Heart disease Hypertension Dyslipidemia Aunt Twin aunt delivered twins Denies family history of Ovarian cancer Prostate cancer Lung cancer Past Surgical History Surgical History H/O breast surgery Lump removal Hx of LASIK S/P wisdom tooth extraction Past Anesthesia History No Hx of Anesthesia Complications and No Family Hx of Anesthesia Complications History of PONV No Hx of PONV and No Hx of Motion Sickness Social History Smoking Status: Never smoker Hx Alcohol Use: No Hx Substance Use: No substance use type: does not use Review of Systems denies fever/cough/ colds/ chest pain/ SOB/ MOHIT denies MOHIT Physical Exam Vital Signs Last Vital Signs Temp 36.6 C 11/17/21 11:00 Pulse 83 11/17/21 14:23 Resp 18 11/17/21 14:16 BP 116/66 11/17/21 14:23 Pulse Ox 99 11/17/21 14:22 ENMT Mouth: no TMJ abnormality and no dentition abnormality Thyromental Distance: > or= 3.5 Finger Breadths Mallampati Class: II Neck neck extension not limited Respiratory normal respiratory effort; no respiratory distress Auscultation: lungs clear to auscultation bilaterally Cardiovascular Rate/Rhythm: regular rate and regular rhythm Neurologic moves all extremities Psychiatric Orientation: alert and oriented x 3 Testing Laboratory Results 11/17/21 09:25 Blood Type Cancelled 11/17/21 09:25 Blood Type O Positive 11/17/21 09:25 Antibody Screen Cancelled 11/17/21 09:25 Antibody Screen NEGATIVE 11/17/21 09:25
[2021-11-17] MEDS ORDERED: SODIUM CHLORIDE 0.9% INJ 10 ML VIAL ONE (13:27)
[2021-11-17] MEDS ORDERED: ePHEDrine sulfate 50 MG/ML AMP ONE (13:27)
[2021-11-17] MEDS ORDERED: LIDOCAINE 2%/EPINEPHRINE 1:200,000 20 ML SDV ONE (13:27)
[2021-11-17] MEDS ORDERED: BUPIVACAINE 0.25% 30 ML VIAL ONE (13:27)
[2021-11-17] MEDS ORDERED: fentaNYL citrate 100 MCG/2 ML VIAL ONE (13:27)
[2021-11-17] MEDS ORDERED: fentaNYL 2MCG/ML ROPIVACAINE 1.25MG/ML 100 ML BAG EPI ONE (13:29)
[2021-11-17] MEDS ORDERED: ERYTHROMYCIN OP OINT 1 GM PKT ONE (21:03)
[2021-11-17] MEDS ORDERED: miSOPROStoL 200 MCG TAB ONE (21:41)
[2021-11-17] MEDS ORDERED: METHYLERGONOVINE MALEATE 0.2 MG/ML AMP ONE (21:41)
[2021-11-17] MEDS ORDERED: HYDROCORTISONE ACETATE 25 MG SUPP PR PRN (21:41)
[2021-11-17] MEDS ORDERED: DIPHTHERIA/TETANUS/PERTUSSIS 0.5 ML SYR/VIAL IM ONE (21:41)
[2021-11-17] MEDS ORDERED: bisacodyL 10 MG SUPP PR PRN (21:41)
[2021-11-17] MEDS ORDERED: oxyCODONE/ACETAMINOPHEN 5mg/325mg TAB PO PRN (21:41)
[2021-11-17] MEDS ORDERED: BENZOCAINE 20% AER SPR 82.5 GM CAN EXT PRN (21:41)
[2021-11-17] MEDS ORDERED: METHYLERGONOVINE MALEATE 0.2 MG/ML AMP IM ONE (22:11)
[2021-11-17] MEDS ORDERED: miSOPROStoL 200 MCG TAB PR ONE (22:11)
--- NOTE | 2021-11-17 22:27 | Delivery Summary ---
Vaginal Delivery Summary Date of Service November 17, 2021 Vaginal Delivery Summary Patient is a 26-year-old 2 para 1-0-0-1 female EDC of 11/19/2021 who presents for induction of labor because of two-vessel cord and suspected LGA baby. She received Pitocin augmentation of her contractions and epidural when she became uncomfortable. Membranes were ruptured for clear fluid. She progressed to full dilation with the urge to push. She pushed effectively over intact perineum for delivery of a viable female . After the head was delivered the shoulders were delivered easily. The infant was then placed on mother's abdomen for further attention and drying. She was vigorous and moving all 4 limbs. After 1 minute the cord was clamped and cut. After cord blood was obtained, placenta was expressed intact with a three-vessel cord. A remnant of membranes was also then removed with ring forceps from the vaginal vault. bleeding was controlled with dilute Pitocin and fundal massage. There is still moderate bleeding despite these efforts and she was given 1 dose of IM Methergine and 800 mcg of Cytotec. At this point bleeding was small and uterus was firm. Estimated blood loss was 600 cc. A superficial abrasion on the right labia minora was not bleeding and therefore not repaired. Mother and infant were doing well after delivery[place] [facility] [place] Charge Delivery Type Details: ASHANTI
[2021-11-17] MEDS: IBUPROFEN 600 MG TAB PO PRN (23:44)
[2021-11-18] MEDS: IBUPROFEN 600 MG TAB PO PRN ×5 (04:01→23:57)
--- NOTE | 2021-11-18 05:31 | Obstetrical Progress Note ---
Date of Service <Michelle Cam DO - Last Filed: 11/18/21 07:39> November 18, 2021 Assessment & Plan <Michelle Cam DO - Last Filed: 11/18/21 07:39> (1) Two vessel umbilical cord, antepartum: (2) Encounter for supervision of normal in multigravida, antepartum: (3) Hypertension affecting in third trimester: Plan s/p PPD 1 -Vital signs reviewed and WNL, Tmax at 36.9 -Hemoglobin reviewed, 11.3 (11/17) 10.0 (11/18) -O+, GBS-, rubella immune -Patient is doing well clinically -Encourage ambulation, monitor pain and treat with motrin PRN, monitor lochia -Return to regular diet -Discussed trying to empty bladder regularly. <Raquel Zhang MD, FACOG - Last Filed: 11/18/21 07:52> (1) Two vessel umbilical cord, antepartum: (2) Encounter for supervision of normal in multigravida, antepartum: (3) Hypertension affecting in third trimester: Subjective <Michelle Cam DO - Last Filed: 11/18/21 07:39> Loren is a 26 y/o female who is PPD #1 following at 39 5/7 weeks, with hemorrhage. Her was complicated by a 2 vessel cord and suspected macrosomia so she was scheduled for IOL. Patient was seen and examined at bedside. She reports feeling well overall this morning. Admits to some abdominal cramping & 2-3/10 pain well managed on analgesics. Voiding without issue. Tolerating meals overnight and able to ambulate some. Has been passing gas but has not had a bowel movement. Has persistent lochia, awoke 2x during the night and had some "gushing blood" with a few clots when she went to the bathroom. Currently formula feeding. Constitutional: no fever, no chills or no sweats Respiratory: no cough, no dyspnea or no wheezing Cardiovascular: no chest pain, no palpitations or no calf pain Breast: no breast pain Genitourinary (female): no dysuria Neurologic: no headache(s) Physical Exam <Michelle Cam DO - Last Filed: 11/18/21 07:39> Constitutional WD/WN, vitals as above no acute distress Respiratory no respiratory distress Auscultation: lungs clear to auscultation bilaterally; no rales, no rhonchi and no wheezes Cardiovascular RRR, no murmur, no edema Extremities: no calf tenderness and no edema Negative Avila's sign bilaterally. Gastrointestinal (Abdomen) Inspection/Auscultation: normal bowel sounds Genitourinary Uterine fundus firm, palpable 2 cm below the umbilicus. Results & Data ([facility]) <Michelle Durham Tutu, DO - Last Filed: 11/18/21 07:39> Vital Signs (Past 12 Hours) Vital Signs Temp Pulse Pulse Resp BP BP Pulse Ox 11/18/21 03:25 36.9 C 80 20 128/81 97 11/17/21 22:35 18 11/17/21 22:05 18 11/17/21 22:20 20 11/17/21 21:50 18 11/17/21 21:35 20 11/17/21 23:36 106 H 123/70 11/17/21 23:21 96 H 121/71 11/17/21 23:06 94 H 117/65 11/17/21 22:51 100 H 128/65 11/17/21 22:45 91 H 129/77 11/17/21 22:20 93 H 126/73 11/17/21 21:36 107 H 113/82 11/17/21 21:27 102 H 112/75 11/17/21 21:21 106 H 112/74 11/17/21 21:13 126 H 98 11/17/21 21:11 107 H 88 L 11/17/21 21:09 22 11/17/21 21:09 110 H 22 143/72 H 11/17/21 21:08 122 H 100 11/17/21 21:03 124 H 100 11/17/21 20:58 102 H 100 11/17/21 20:47 20 11/17/21 20:47 20 11/17/21 20:53 110 H 100 11/17/21 20:48 108 H 88 L 11/17/21 20:43 109 H 100 11/17/21 20:38 128 H 100 11/17/21 20:36 36.9 C 88 18 123/83 11/17/21 20:33 96 H 100 11/17/21 20:28 89 100 11/17/21 20:23 115 H 100 11/17/21 20:18 93 H 100 11/17/21 20:13 79 100 11/17/21 20:01 20 11/17/21 20:01 20 11/17/21 20:08 80 99 11/17/21 20:06 77 112/70 11/17/21 20:07 80 111/66 11/17/21 20:03 84 100 11/17/21 19:57 69 100 11/17/21 19:52 72 100 11/17/21 19:51 74 135/87 11/17/21 19:47 85 100 11/17/21 19:42 74 100 11/17/21 19:00 20 11/17/21 19:00 36.7 C 20 11/17/21 19:37 79 100 11/17/21 19:36 72 20 135/81 11/17/21 19:32 83 100 11/17/21 19:27 69 100 11/17/21 19:22 74 129/76 100 11/17/21 19:17 81 100 11/17/21 19:12 70 100 11/17/21 19:07 69 100 11/17/21 19:06 65 138/73 11/17/21 19:02 71 100 11/17/21 18:57 83 100 11/17/21 18:52 86 100 11/17/21 18:51 73 128/84 11/17/21 18:47 87 100 11/17/21 18:42 72 100 11/17/21 18:37 100 11/17/21 18:37 95 H 11/17/21 18:37 93 H 129/85 11/17/21 18:32 72 100 11/17/21 18:27 62 100 11/17/21 18:22 100 11/17/21 18:22 70 11/17/21 18:22 63 127/81 11/17/21 18:17 63 100 11/17/21 18:12 68 100 11/17/21 18:07 60 100 11/17/21 18:06 57 L 118/73 11/17/21 18:02 62 100 11/17/21 18:00 18 11/17/21 18:00 18 11/17/21 17:57 60 100 11/17/21 17:52 68 100 11/17/21 17:51 68 116/76 11/17/21 17:47 91 H 100 11/17/21 17:42 73 100 11/17/21 17:30 18 11/17/21 17:30 18 11/17/21 17:37 68 100 11/17/21 17:36 76 120/83 11/17/21 17:32 66 100 11/17/21 17:29 68 118/76 O2 Del Method 11/18/21 03:25 Room Air 11/17/21 22:35 11/17/21 22:05 11/17/21 22:20 11/17/21 21:50 11/17/21 21:35 11/17/21 23:36 11/17/21 23:21 11/17/21 23:06 11/17/21 22:51 11/17/21 22:45 11/17/21 22:20 11/17/21 21:36 11/17/21 21:27 11/17/21 21:21 11/17/21 21:13 11/17/21 21:11 11/17/21 21:09 11/17/21 21:09 11/17/21 21:08 11/17/21 21:03 11/17/21 20:58 11/17/21 20:47 11/17/21 20:47 11/17/21 20:53 11/17/21 20:48 11/17/21 20:43 11/17/21 20:38 11/17/21 20:36 11/17/21 20:33 11/17/21 20:28 11/17/21 20:23 11/17/21 20:18 11/17/21 20:13 11/17/21 20:01 11/17/21 20:01 11/17/21 20:08 11/17/21 20:06 11/17/21 20:07 11/17/21 20:03 11/17/21 19:57 11/17/21 19:52 11/17/21 19:51 11/17/21 19:47 11/17/21 19:42 11/17/21 19:00 11/17/21 19:00 11/17/21 19:37 11/17/21 19:36 11/17/21 19:32 11/17/21 19:27 11/17/21 19:22 11/17/21 19:17 11/17/21 19:12 11/17/21 19:07 11/17/21 19:06 11/17/21 19:02 11/17/21 18:57 11/17/21 18:52 11/17/21 18:51 11/17/21 18:47 11/17/21 18:42 11/17/21 18:37 11/17/21 18:37 11/17/21 18:37 11/17/21 18:32 11/17/21 18:27 11/17/21 18:22 11/17/21 18:22 11/17/21 18:22 11/17/21 18:17 11/17/21 18:12 11/17/21 18:07 11/17/21 18:06 11/17/21 18:02 11/17/21 18:00 11/17/21 18:00 11/17/21 17:57 11/17/21 17:52 11/17/21 17:51 11/17/21 17:47 11/17/21 17:42 11/17/21 17:30 11/17/21 17:30 11/17/21 17:37 11/17/21 17:36 11/17/21 17:32 11/17/21 17:29 <Raquel Zhang MD, FACOG - Last Filed: 11/18/21 07:52> Co-Signing Physician Notes Resident Physician Supervision Note: I interviewed and examined the patient. Discussed with Dr. Cam and agree with findings and plan as documented in the note. Any exceptions or clarifications are listed here: [None] Documented By: Raquel Zhang MD, FACOG Resident Activity Tracking <Michelle Cam, DO - Last Filed: 11/18/21 07:39> Resident Involvement: Resident Care Provided Care Provided: OB Delivery
[2021-11-18 07:24] LABS: Hematocrit (blood only) 30.9 % (34.1-44.9); Mean Corpuscular Hemoglobin 28.3 pg (25.0-34.0); Mean Corpuscular Hgb Conc 32.4 g/dL (32.0-36.0); Mean Corpuscular Volume 87.5 fL (80.0-100.0); Mean Platelet Volume 10.9 fL (9.4-12.3); Platelet Count 150 K/uL (130-400); RDW Standard Deviation 44.5 fL (36.4-46.3); Red Blood Count 3.53 M/uL (3.93-5.22); White Blood Count 14.83 K/ul (4.8-10.8)
[2021-11-18] MEDS: DOCUSATE SODIUM 100 MG CAP PO SCH ×2 (07:46→20:24)
[2021-11-18] MEDS: PRENATAL VITAMIN 1 TAB PO SCH (07:46)
[2021-11-18] MEDS: ACETAMINOPHEN 325 MG TAB PO PRN ×2 (12:21→20:24)
--- NOTE | 2021-11-18 14:59 | Anesthesia Procedure Note ---
Date of Service November 18, 2021 Anesthesia Post Epidural Note Vital Signs Vital Signs: Temp Pulse Resp BP Pulse Ox O2 Del Method 36.6 C 91 H 18 117/78 97 11/18/21 12:10 11/18/21 12:10 11/18/21 12:10 11/18/21 12:10 11/18/21 03:25 11/18/21 12:10 Pain Intensity Bilateral Abdomen: Pain Intensity: 3 Perineal: Pain Intensity: 2 Notes Mental Status: alert / awake / arousable and participated in evaluation Nausea / Vomiting: adequately controlled Pain: adequately controlled Airway Patency, RR, SpO2: stable & adequate BP & HR: stable & adequate Hydration State: stable & adequate Anesthetic Complications: no major complications apparent Epidural: Removed without complications
[2021-11-18] MEDS ORDERED: bisacodyL 5 MG TABEC PO SCH (20:00)
[2021-11-19] MEDS: IBUPROFEN 600 MG TAB PO PRN (06:23)
[2021-11-19 06:53] LABS: Hemoglobin 8.9 g/dl (12.0-16.0)
[2021-11-19] MEDS: PRENATAL VITAMIN 1 TAB PO SCH (07:25)
[2021-11-19] MEDS: ACETAMINOPHEN 325 MG TAB PO PRN (07:25)
[2021-11-19] MEDS: DOCUSATE SODIUM 100 MG CAP PO SCH (07:25)
--- NOTE | 2021-11-19 08:08 | Obstetrical Progress Note ---
Date of Service November 19, 2021 Assessment & Plan (1) Encounter for supervision of normal in multigravida, antepartum: PPD#2 doing well, no concerns. DC home today. Reviewed instructions, followup in office 6w. Subjective Ambulation: ambulating normally Voiding: no voiding problems Diet Tolerance:: regular diet Lochia:: Moderate Review of Systems All systems reviewed & are unremarkable except as noted in HPI & below Physical Exam Constitutional WD/WN, vitals as above no acute distress Respiratory normal respiratory effort Cardiovascular Rate/Rhythm: regular rate and regular rhythm Gastrointestinal (Abdomen) Inspection/Auscultation: abdomen normal to inspection; abdomen not distended Percussion/Palpation: abdomen soft Genitourinary OB Exam Abdomen: + fundal height Fundus: + firm; not tender Results & Data ([facility]) Vital Signs (Past 12 Hours) Vital Signs Temp Pulse Resp BP Pulse Ox O2 Del Method 11/19/21 07:15 36.4 C L 73 18 118/78 Room Air 11/18/21 23:40 36.5 C 79 16 110/72 96 Room Air
== END 2021-11-19 10:35 | disposition home or self-care (01) | DRG 807 ==
LOC: 4S1 07:58 → 4E2 11-18 00:18
DX: O16.4 Unspecified maternal hypertension, complicating childbirth; Z83.3 Family history of diabetes mellitus; Z37.0 Single live birth; Z3A.39 39 weeks gestation of pregnancy; Z87.59 Personal history of other complications of pregnancy, childbirth and the puerperium; O36.63X0 Maternal care for excessive fetal growth, third trimester, not applicable or unspecified; O69.89X0 Labor and delivery complicated by other cord complications, not applicable or unspecified